=== PATIENT | female | born 1990 | race Caucasian/White ===

== ENCOUNTER 2019-12-02 06:49 | Inpatient (IN) | payer OTHER ==
[~2019-12-02] VITALS: Ht 157.5 cm; Wt 73.5 kg
[2019-12-02] MEDS ORDERED: PRENATAL TABLE1 EACH (09:01)
== END 2019-12-04 19:53 | disposition home or self-care (01) | DRG 807 ==
LOC: LDR 06:49 → OB/GYN 06:49
PROVIDERS: ADMIT Obstetrics & Gynecology
PROC: 10E0XZZ Delivery of Products of Conception, External Approach (ICD-10-PCS; principal; 2019-12-02)
PROC: 4A1HXCZ Monitoring of Products of Conception, Cardiac Rate, External Approach (ICD-10-PCS; 2019-12-02)
PROC: 3E033VJ Introduction of Other Hormone into Peripheral Vein, Percutaneous Approach (ICD-10-PCS; 2019-12-02)
DX: O80 Encounter for full-term uncomplicated delivery (principal); Z37.0 Single live birth; Z3A.39 39 weeks gestation of pregnancy

== ENCOUNTER 2021-08-31 08:04 | Outpatient (CLI) | payer OTHER ==
[~2021-08-31 08:04] MED LIST: PRENATAL TABLE1 EACH
== END 2021-08-31 17:00 | disposition home or self-care (01) ==
LOC: OBS/DEL 08:04
PROVIDERS: ATTEND Obstetrics & Gynecology
DX: O09.899 Supervision of other high risk pregnancies, unspecified trimester (principal); O36.8330 Maternal care for abnormalities of the fetal heart rate or rhythm, third trimester, not applicable or unspecified; Z3A.35 35 weeks gestation of pregnancy

== ENCOUNTER 2021-09-07 08:06 | Outpatient (CLI) | payer OTHER | END 2021-09-07 17:19 | disposition home or self-care (01) | LOC: OBS/DEL 08:06 | PROVIDERS: ATTEND Obstetrics & Gynecology | DX: O36.8130 Decreased fetal movements, third trimester, not applicable or unspecified (principal); Z3A.36 36 weeks gestation of pregnancy ==

== ENCOUNTER 2021-09-24 18:02 | Inpatient (IN) | payer OTHER ==
[~2021-09-24] VITALS: Ht 157.5 cm; Wt 69.9 kg
== END 2021-09-26 14:39 | disposition home or self-care (01) | DRG 807 ==
LOC: LDR 18:02 → OB/GYN 22:53
PROVIDERS: ADMIT Obstetrics & Gynecology; ATTEND Obstetrics & Gynecology
PROC: 10E0XZZ Delivery of Products of Conception, External Approach (ICD-10-PCS; principal; 2021-09-24)
PROC: 0KQM0ZZ Repair Perineum Muscle, Open Approach (ICD-10-PCS; 2021-09-24)
PROC: 4A1HXCZ Monitoring of Products of Conception, Cardiac Rate, External Approach (ICD-10-PCS; 2021-09-24)
DX: O70.1 Second degree perineal laceration during delivery (principal); Z37.0 Single live birth; Z3A.39 39 weeks gestation of pregnancy; Z20.822 Contact with and (suspected) exposure to COVID-19